=== PATIENT | female | born 1935 | race Asian ===

== ENCOUNTER 2017-01-26 17:55 | Emergency (ER) | payer OTHER ==
[~2017-01-26] VITALS: Ht 152.4 cm; Wt 49.9 kg
[2017-01-26 17:55] VITALS: BP_SYST 145
[2017-01-26] MEDS: MORPHINE 4 MG/ML INJ. SYRINGE IM ONE (20:20)
[2017-01-26 20:46] VITALS: BP_SYST 145
== END 2017-01-26 20:46 | disposition home or self-care (01) ==
LOC: SED 17:55
DX: S73.101A Unspecified sprain of right hip, initial encounter (principal); E11.9 Type 2 diabetes mellitus without complications; X58.XXXA Exposure to other specified factors, initial encounter; Y93.89 Activity, other specified; Y92.89 Other specified places as the place of occurrence of the external cause; Y99.8 Other external cause status
CPT/HCPCS: 72170; 73502; 96372; 99284; J2270

== ENCOUNTER 2017-04-17 08:32 | Outpatient (CLI) | payer OTHER | END 2017-04-17 17:20 | disposition home or self-care (01) | LOC: SMA 08:32 | PROVIDERS: ATTEND Family Medicine | DX: Z12.31 Encounter for screening mammogram for malignant neoplasm of breast (principal) | CPT/HCPCS: G0202 ==

== ENCOUNTER 2018-05-17 08:30 | Outpatient (CLI) | payer OTHER | END 2018-05-17 21:08 | disposition home or self-care (01) | LOC: SMA 08:30 | PROVIDERS: ATTEND Family Medicine | DX: Z12.31 Encounter for screening mammogram for malignant neoplasm of breast (principal) | CPT/HCPCS: 77067 ==

== ENCOUNTER 2019-12-31 20:32 | Emergency (ER) | payer OTHER ==
[~2019-12-31] VITALS: Ht 152.4 cm; Wt 52.2 kg
[2019-12-31 20:56] VITALS: BP_SYST 118
--- NOTE | 2019-12-31 21:06 | NUR ---
Placed in room 02 . Placed on security monitor, blood pressure machine and pulse oximeter. To gown for exam. Side rails up. Report given to KRISHAN St.
--- NOTE | 2019-12-31 21:10 | NUR ---
Patient AOx4, GCS 15, presents to ED via wheelchair for c/o mechanical fall at 1100 today. Patient reports slipping on water and falling back hitting occiput of head. Superficial abrasion noted to occiput. Granddaughter reported that there was initially a hematoma to site which gradually subsided after applying ice. No report of pain. Patient is not on blood thinners. Patient states, "I feel fine now, my family just brought me to get evaluated by a physician. HR 123 upon triage, patient reports no chest pain, no palpitations. Patient uses a cane as assistive device.
--- NOTE | 2019-12-31 21:20 | NUR ---
ED MD Crews at bedside for medical evaluation.
--- NOTE | 2019-12-31 21:28 | NUR ---
Patient taken by radiology for XR via gurney. NAD noted at this time.
--- NOTE | 2019-12-31 21:40 | NUR ---
# 18 gauge angiocath placed to RAC. Use of asceptic technique. Opsite placed over site. Blood return noted. Blood for lab drawn from site. Flushed with 10 cc of normal saline. No evidence of infiltration noted. Patient tolerated well.
--- NOTE | 2019-12-31 21:46 | NUR ---
Rectal temp 99.0
[2019-12-31] MEDS ORDERED: MAGNESIUM SULFATE/D5W 100 ML IV ONE (22:00)
[2019-12-31 22:05] LABS: BASOPHILS # (AUTO) 0.1 K/uL (0.0-0.2); BASOPHILS % (AUTO) 1.1 % (0.0-2.0); EOSINOPHILS # (AUTO) 0.1 K/uL (0.0-0.4); EOSINOPHILS % (AUTO) 0.9 % (0.0-4.0); HEMATOCRIT 38.8 % (36-48); HEMOGLOBIN 12.7 g/dL (12.0-16.0); LYMPHOCYTES % (AUTO) 13.3 % (20.5-51.5); MEAN CORPUSCULAR HEMOGLOBIN 32 pg (27-31); MEAN CORPUSCULAR HGB CONC 33 % (32-36); MEAN CORPUSCULAR VOLUME 98 fL (79.0-98.0); MONOCYTES # (AUTO) 0.4 K/uL (0.0-1.0); MONOCYTES % (AUTO) 5.6 % (1.7-9.3); NEUTROPHILS # (AUTO) 5.8 K/uL (1.8-7.7); NEUTROPHILS % (AUTO) 79.1 % (40.0-70.0); PLATELET COUNT (AUTO) 254 K/uL (130-430); RED BLOOD CELL COUNT(AUTO) 3.96 MIL/uL (4.2-6.2); RED CELL DISTRIBUTION WIDTH 14.7 % (9.0-15.0); WHITE BLOOD COUNT (AUTO) 7.3 K/uL (4.8-10.8)
[2019-12-31 22:18] LABS: ANION GAP 10 (5-15); CHLORIDE 103 mmol/L (98-107); CREATININE 1.09 mg/dL (0.55-1.30); GLUCOSE 133 mg/dL (70-99); POTASSIUM 4.3 mmol/L (3.5-5.1); SODIUM SERUM 140 mmol/L (136-145); UREA NITROGEN, BLOOD 19 mg/dL (8-21)
[2019-12-31 22:24] LABS: ALANINE AMINOTRANSFERASE 20 U/L (12-78); ASPARTATE AMINOTRANSFERASE 15 U/L (10-37); TOTAL BILIRUBIN 0.4 mg/dL (0.0-1.0)
[2019-12-31] MEDS ORDERED: MAGNESIUM SULFATE 1 GM in NS 100 ML IV ONE (23:15)
[2019-12-31 23:44] LABS: BILIRUBIN,URINE NEGATIVE (NEGATIVE); BLOOD, URINE NEGATIVE (NEGATIVE); CLARITY/URINE SL CLOUDY (CLEAR); COLOR,URINE YELLOW (YELLOW); GLUCOSE,URINE NEGATIVE (NEGATIVE); KETONES,URINE NEGATIVE (NEGATIVE); LEUKOCYTE ESTERASE ,URINE TRACE (NEGATIVE); NITRITE, URINE NEGATIVE (NEGATIVE); PROTEIN URINE NEGATIVE (NEGATIVE); UROBILINOGEN,URINE 0.2 (0.2-1.0)
[2019-12-31 23:49] LABS: BACTERIA,URINE RARE /HPF (None Seen); RBC,URINE 0-3 /HPF (0-3)
[2020-01-01] MEDS ORDERED: MAGNESIUM SULFATE 1 GM/2 ML VIAL ONE (01:02)
--- NOTE | 2020-01-01 01:54 | NUR ---
Pt requesting to use the bathroom, assisted pt to ambulate.
[2020-01-01 02:06] VITALS: BP_SYST 120
--- NOTE | 2020-01-01 02:06 | NUR ---
Patient given written and verbal discharge instructions and verbalizes understanding. ER MD discussed with patient the results and treatment provided. Patient in stable condition. ID arm band removed. IV catheter removed intact and dressing applied, no active bleeding. Opportunity for questions provided and answered. Medication side effect fact sheet provided.
== END 2020-01-01 02:06 | disposition home or self-care (01) ==
LOC: SED 20:32
DX: S09.8XXA Other specified injuries of head, initial encounter (principal); E11.9 Type 2 diabetes mellitus without complications; W01.198A Fall on same level from slipping, tripping and stumbling with subsequent striking against other object, initial encounter; Y93.89 Activity, other specified; Y92.89 Other specified places as the place of occurrence of the external cause; Y99.8 Other external cause status
CPT/HCPCS: 36415; 70450; 71045; 72125; 80053; 81000; 83605; 83880; 84484; 85025; 87040; 87086; 87186; 93005; 96365; 99285; J3475; 96368

== ENCOUNTER 2021-05-31 11:35 | Emergency (ER) | payer OTHER ==
[~2021-05-31] VITALS: Ht 152.4 cm; Wt 46.3 kg
--- NOTE | 2021-05-31 11:55 | NUR ---
Patient to ER bed 4 to gown for evaluation. Side rails up. Report given to Michelle NICKERSON.
[2021-05-31 11:59] VITALS: BP_SYST 131
--- NOTE | 2021-05-31 12:09 | NUR ---
PT WAS BROUGHT TO ER VIA PERSONAL VEHICLE WITH HER [id number]. PT STATED SHE FELL THIS MORNING WHILE SHE WAS USING HER WALKER. PT DENIES SYNCOPY PRIOR TO THE FALL AND DENIES LOC FOLLOWING THE FALL. PT HAS AN APPROX 1.5-2 INCH HEMATOMA ON THE LEFT SIDE OF HER FOREHEAD-PURPLE IN COLOR, NO ACTIVE BLEEDING NOTED. PT STATES THE PAIN WAS A "3 OR 4" IMMEDIATELY FOLLOWING THE FALL BUT STATES "THE PAIN IS ALMOST GONE" CURRENTLY. THE PATIENT DENIES ANY NUMBNESS, WEAKNESS, OR PARASTHESIS IN THE EXTREMITIES. THERE IS NO RADIATION OF PAIN OR OTHER INJURIES FROM THE FALL FOUND. PT PUPILS ARE DANILO AND 3 MM. PT IS ABLE TO COHERENTLY ANSWER QUESTIONS AND FOLLOW COMMANDS. NEURO: PT IS AOX4, NO NUMBNESS OR WEAKNESS. PUPILS ARE DANILO AT 3MM. VITALS FOLLOWED: 131/65 (L. ARM), 87 HR (NSR), 15 RR, 98% O2 (ROOM AIR), AND 1/10 PAIN. PATIENT IS IN SEMI-FOWLERS POSITION WITH LIGHTS ON WITH RAILS UP. PATIENT STATES FAMILY IS IN THE WAITING ROOM.
--- NOTE | 2021-05-31 12:25 | NUR ---
DR OCHOA IN ROOM FOR EXAM
--- NOTE | 2021-05-31 12:31 | NUR ---
PT TAKEN TO CT SCAN
--- NOTE | 2021-05-31 13:27 | NUR ---
pt is to be discharged, family was called and they are thier way to [facility] in 15min.
--- NOTE | 2021-05-31 13:54 | NUR ---
Patient given written and verbal discharge instructions and verbalizes understanding. ER MD discussed with patient the results and treatment provided. Patient in stable condition. ID arm band removed. Patient educated on pain management and to follow up with PMD. Pain Scale . Opportunity for questions provided and answered. Medication side effect fact sheet provided.
[2021-05-31 14:20] VITALS: BP_SYST 136
== END 2021-05-31 14:20 | disposition home or self-care (01) ==
LOC: SED 11:35
DX: S09.90XA Unspecified injury of head, initial encounter (principal); E11.9 Type 2 diabetes mellitus without complications; W01.0XXA Fall on same level from slipping, tripping and stumbling without subsequent striking against object, initial encounter; Y93.89 Activity, other specified; Y92.89 Other specified places as the place of occurrence of the external cause; Y99.8 Other external cause status
CPT/HCPCS: 70450-TC; 76376; 99284

== ENCOUNTER 2023-11-11 11:10 | Inpatient (IN) | payer OTHER ==
[2023-11-11] VITALS (13 sets, daily range): BP systolic 82–134; PULSE 83–129; RESP 13–25; TEMP 98.4; O2SAT 95–99
[~2023-11-11] VITALS: Ht 149.9 cm; Wt 52.2 kg
[2023-11-11] MEDS: METOCLOPRAMIDE HCL 10 MG/2 ML VIAL IVP ONE (12:05)
[2023-11-11] MEDS: MECLIZINE HCL 25 MG TABLET (ANITVERT) PO ONE (12:05)
[2023-11-11 12:27] LABS: BASOPHILS % (AUTO) 0.3 % (0.0-2.0); EOSINOPHILS % (AUTO) 0.2 % (0.0-4.0); HEMATOCRIT 33.1 % (36-48); LYMPHOCYTES # (AUTO) 0.4 K/uL (1.0-5.5); LYMPHOCYTES % (AUTO) 4.2 % (20.5-51.5); MEAN CORPUSCULAR HEMOGLOBIN 33 pg (27-31); MEAN CORPUSCULAR HGB CONC 33 % (32-36); MEAN CORPUSCULAR VOLUME 98 fL (79.0-98.0); MONOCYTES # (AUTO) 0.6 K/uL (0.0-1.0); MONOCYTES % (AUTO) 7.1 % (1.7-9.3); NEUTROPHILS % (AUTO) 88.2 % (40.0-70.0); PLATELET COUNT (AUTO) 204 K/uL (130-430); RED BLOOD CELL COUNT(AUTO) 3.38 MIL/uL (4.2-6.2); RED CELL DISTRIBUTION WIDTH 14.5 % (9.0-15.0)
[2023-11-11 12:41] LABS: INR 1.1 (0.8-1.2); PROTHROMBIN TIME 11.6 SECS (9.5-12.5)
[2023-11-11 12:48] LABS: ALANINE AMINOTRANSFERASE 20 U/L (12-78); ALBUMIN 3.2 g/dL (3.4-4.8); ANION GAP 14 (5-15); ASPARTATE AMINOTRANSFERASE 32 U/L (10-37); BILIRUBIN,DIRECT 0.1 mg/dL (0.0-0.3); CALCIUM 8.6 mg/dL (8.4-11.0); CARBON DIOXIDE 20 mmol/L (23-29); CHLORIDE 99 mmol/L (98-107); CREATINE KINASE, TOTAL 1691 U/L (26-192); CREATININE 2.68 mg/dL (0.55-1.30); GLUCOSE 100 mg/dL (74-106); POTASSIUM 5.5 mmol/L (3.5-5.1); SODIUM SERUM 133 mmol/L (136-145); TOTAL BILIRUBIN 0.4 mg/dL (0.0-1.0); TOTAL PROTEIN, SERUM 6.5 g/dL (6.4-8.3); UREA NITROGEN, BLOOD 59 mg/dL (8-21)
[2023-11-11] MEDS: NACL 0.9% 1,000 ML IV ONE ×2 (13:41→16:14)
[2023-11-11] MEDS ORDERED: CARV12.548 PO (15:27)
[2023-11-11] MEDS ORDERED: LIP20 PO (15:27)
[2023-11-11] MEDS ORDERED: AMLO5TAB92 PO (15:27)
[2023-11-11] MEDS ORDERED: LISI20TA PO (15:27)
[2023-11-11] MEDS ORDERED: ALEN1TAB5 PO (15:27)
[2023-11-11] MEDS ORDERED: METF-379 PO (15:27)
[2023-11-11] MEDS ORDERED: PIOG15TA8 PO (15:27)
[2023-11-11 15:33] LABS: CKMB RELATIVE INDEX 0.4 (0.0-2.9)
[2023-11-11] MEDS ORDERED: ACETAMINOPHEN 325 MG TABLET PO PRN (16:15)
[2023-11-11] MEDS ORDERED: ONDANSETRON HCL 4 MG/2 ML VIAL IVP PRN (16:15)
[2023-11-11] MEDS ORDERED: NALOXONE HCL 0.4 MG/ML AMP (NARCAN) IVP PRN ×2 (16:15)
[2023-11-11] MEDS: NACL 0.9% 1,000 ML IV SCH (18:00)
[2023-11-11] MEDS: NOREPINEPHRINE BITARTRATE 4 MG in D5W 246 ML IV PRN (18:08)
[2023-11-11] MEDS: ATORVASTATIN 20 MG TABLET PO ONE (18:45)
[2023-11-11 20:25] LABS: BILIRUBIN,URINE NEGATIVE (NEGATIVE); BLOOD, URINE 2+ (NEGATIVE); CLARITY/URINE SL CLOUDY (CLEAR); COLOR,URINE YELLOW (YELLOW); GLUCOSE,URINE NEGATIVE (NEGATIVE); KETONES,URINE NEGATIVE (NEGATIVE); NITRITE, URINE NEGATIVE (NEGATIVE); PROTEIN URINE NEGATIVE (NEGATIVE); UROBILINOGEN,URINE 0.2 (0.2-1.0)
[2023-11-11 20:34] LABS: BACTERIA,URINE MODERATE /HPF (None Seen); LEUKOCYTE ESTERASE ,URINE NEGATIVE (NEGATIVE); WBC,URINE 0-3 /HPF (0-3)
[2023-11-11 20:35] LABS: CALCIUM OXALATE CRYSTALS,UR 30-50 /HPF (None Seen); MUCUS,URINE None Seen /LPF (None Seen)
[2023-11-12] VITALS (72 sets, daily range): BP systolic 71–187; PULSE 76–115; RESP 15–26; TEMP 97.8–98.5; O2SAT 93–100
[2023-11-12] MEDS: NOREPINEPHRINE 4 MG/4 ML VIAL IV ONE (01:12)
[2023-11-12 04:32] LABS: BASOPHILS % (AUTO) 0.6 % (0.0-2.0); EOSINOPHILS # (AUTO) 0.1 K/uL (0.0-0.4); EOSINOPHILS % (AUTO) 1.5 % (0.0-4.0); HEMATOCRIT 28.6 % (36-48); HEMOGLOBIN 9.6 g/dL (12.0-16.0); LYMPHOCYTES % (AUTO) 14.5 % (20.5-51.5); MEAN CORPUSCULAR HEMOGLOBIN 33 pg (27-31); MEAN CORPUSCULAR HGB CONC 34 % (32-36); MEAN CORPUSCULAR VOLUME 97 fL (79.0-98.0); MONOCYTES # (AUTO) 0.9 K/uL (0.0-1.0); MONOCYTES % (AUTO) 12.5 % (1.7-9.3); NEUTROPHILS # (AUTO) 4.9 K/uL (1.8-7.7); NEUTROPHILS % (AUTO) 70.9 % (40.0-70.0); PLATELET COUNT (AUTO) 196 K/uL (130-430); RED BLOOD CELL COUNT(AUTO) 2.94 MIL/uL (4.2-6.2); RED CELL DISTRIBUTION WIDTH 14.5 % (9.0-15.0); WHITE BLOOD COUNT (AUTO) 6.9 K/uL (4.8-10.8)
[2023-11-12 05:08] LABS: ALANINE AMINOTRANSFERASE 14 U/L (12-78); ALBUMIN 2.9 g/dL (3.4-4.8); ANION GAP 14 (5-15); ASPARTATE AMINOTRANSFERASE 35 U/L (10-37); CALCIUM 7.9 mg/dL (8.4-11.0); CARBON DIOXIDE 18 mmol/L (23-29); CHLORIDE 109 mmol/L (98-107); CREATINE KINASE, TOTAL 1223 U/L (26-192); CREATININE 2.05 mg/dL (0.55-1.30); GLUCOSE 105 mg/dL (74-106); PHOSPHORUS 3.8 mg/dL (2.7-4.5); POTASSIUM 4.7 mmol/L (3.5-5.1); SODIUM SERUM 141 mmol/L (136-145); TOTAL BILIRUBIN 0.3 mg/dL (0.0-1.0); TOTAL PROTEIN, SERUM 5.8 g/dL (6.4-8.3); UREA NITROGEN, BLOOD 50 mg/dL (8-21)
[2023-11-12 05:33] LABS: CKMB RELATIVE INDEX 0.4 (0.0-2.9)
[2023-11-12] MEDS: amLODIPine BESYLATE 5 MG TABLET PO SCH (09:00)
[2023-11-12] MEDS: CARVEDILOL 12.5 MG TABLET (COREG) PO SCH (09:00)
[2023-11-12] MEDS: PIOGLITAZONE HCL 15 MG TABLET PO SCH (09:00)
[2023-11-12] MEDS: ATORVASTATIN 20 MG TABLET PO SCH (10:18)
[2023-11-12] MEDS: MAGNESIUM SULFATE 50 ML IV ONE (10:19)
[2023-11-12] MEDS: CALCIUM GLUC 2 GM/100ML-NACL 100 ML IV ONE (13:08)
[2023-11-12] MEDS: cefTRIAXone 1 GM in D5W 50 ML IV SCH (13:10)
[2023-11-12] MEDS: PHENTOLAMINE MESYLATE 5 MG VIAL INJ ONE (18:15)
[2023-11-12] MEDS: LORazepam 2 MG/ML VIAL IVP PRN (20:50)
[2023-11-12] MEDS: INSULIN REGULAR, HUMAN 100 UNITS/ML, 3 ML VIAL (humuLIN R) SUBCUT PRN (20:54)
[2023-11-12] MEDS: IPRATROPIUM/ALBUTEROL SULFATE 3 ML AMPUL.NEB (DUONEB) ONE (21:02)
[2023-11-13] VITALS (26 sets, daily range): BP systolic 97–146; PULSE 70–117; RESP 13–28; TEMP 98.2–98.8; O2SAT 94–98
[2023-11-13 06:21] LABS: BASOPHILS % (AUTO) 0.7 % (0.0-2.0); EOSINOPHILS # (AUTO) 0.1 K/uL (0.0-0.4); EOSINOPHILS % (AUTO) 2.2 % (0.0-4.0); HEMATOCRIT 32.3 % (36-48); HEMOGLOBIN 10.8 g/dL (12.0-16.0); LYMPHOCYTES # (AUTO) 0.9 K/uL (1.0-5.5); LYMPHOCYTES % (AUTO) 14.1 % (20.5-51.5); MEAN CORPUSCULAR HEMOGLOBIN 33 pg (27-31); MEAN CORPUSCULAR HGB CONC 33 % (32-36); MEAN CORPUSCULAR VOLUME 98 fL (79.0-98.0); MONOCYTES # (AUTO) 0.6 K/uL (0.0-1.0); MONOCYTES % (AUTO) 9.9 % (1.7-9.3); NEUTROPHILS # (AUTO) 4.7 K/uL (1.8-7.7); NEUTROPHILS % (AUTO) 73.1 % (40.0-70.0); PLATELET COUNT (AUTO) 158 K/uL (130-430); RED BLOOD CELL COUNT(AUTO) 3.31 MIL/uL (4.2-6.2); RED CELL DISTRIBUTION WIDTH 14.6 % (9.0-15.0); WHITE BLOOD COUNT (AUTO) 6.5 K/uL (4.8-10.8)
[2023-11-13 06:25] LABS: ERYTHROCYTE SEDIMENTATION RATE 16 MM/HR (0-20)
[2023-11-13 06:32] LABS: ANION GAP 12 (5-15); CALCIUM 8.4 mg/dL (8.4-11.0); CARBON DIOXIDE 20 mmol/L (23-29); CHLORIDE 115 mmol/L (98-107); CREATINE KINASE, TOTAL 572 U/L (26-192); CREATININE 1.05 mg/dL (0.55-1.30); GLUCOSE 65 mg/dL (74-106); PHOSPHORUS 2.7 mg/dL (2.7-4.5); POTASSIUM 4.2 mmol/L (3.5-5.1); SODIUM SERUM 147 mmol/L (136-145); UREA NITROGEN, BLOOD 18 mg/dL (8-21)
[2023-11-13] MEDS: DEXTROSE 50% JECT 50 ML DISP.SYRIN ONE (07:05)
[2023-11-13] MEDS: IPRATROPIUM/ALBUTEROL SULFATE 3 ML AMPUL.NEB (DUONEB) INH PRN (07:14)
[2023-11-13] MEDS ORDERED: D5W 1,000 ML IV PRN (07:15)
[2023-11-13] MEDS ORDERED: GLUCOSE (DEXTROSE) ORAL GEL -Adults PO PRN (07:15)
[2023-11-13] MEDS ORDERED: DEXTROSE 50%-WATER 50 ML DISP.SYRIN IVP PRN (07:15)
[2023-11-13 07:59] LABS: CKMB RELATIVE INDEX 0.5 (0.0-2.9)
[2023-11-13] MEDS: HYDROcodone/ACETAMIN 10-325 MG TAB PO PRN (11:55)
[2023-11-13] MEDS: ACETAMINOPHEN 325 MG TABLET PO PRN (14:30)
[2023-11-13] MEDS: metroNIDAZOLE 500 mg/NS 100 ML IV SCH (20:22)
[2023-11-14] VITALS (14 sets, daily range): BP systolic 111–155; PULSE 81–102; RESP 13–22; TEMP 98.3–99.1; O2SAT 95–99
[2023-11-14 05:33] LABS: ERYTHROCYTE SEDIMENTATION RATE 26 MM/HR (0-20)
[2023-11-14 05:38] LABS: BASOPHILS % (AUTO) 0.6 % (0.0-2.0); EOSINOPHILS # (AUTO) 0.1 K/uL (0.0-0.4); EOSINOPHILS % (AUTO) 2.1 % (0.0-4.0); HEMATOCRIT 29.8 % (36-48); LYMPHOCYTES # (AUTO) 1.1 K/uL (1.0-5.5); MEAN CORPUSCULAR HEMOGLOBIN 33 pg (27-31); MEAN CORPUSCULAR HGB CONC 34 % (32-36); MEAN CORPUSCULAR VOLUME 98 fL (79.0-98.0); MONOCYTES # (AUTO) 0.7 K/uL (0.0-1.0); MONOCYTES % (AUTO) 10.2 % (1.7-9.3); NEUTROPHILS % (AUTO) 72.1 % (40.0-70.0); PLATELET COUNT (AUTO) 158 K/uL (130-430); RED BLOOD CELL COUNT(AUTO) 3.05 MIL/uL (4.2-6.2); RED CELL DISTRIBUTION WIDTH 14.6 % (9.0-15.0)
[2023-11-14 06:10] LABS: ALANINE AMINOTRANSFERASE 18 U/L (12-78); ALBUMIN 2.3 g/dL (3.4-4.8); ANION GAP 9 (5-15); ASPARTATE AMINOTRANSFERASE 28 U/L (10-37); CALCIUM 8.1 mg/dL (8.4-11.0); CARBON DIOXIDE 19 mmol/L (23-29); CHLORIDE 112 mmol/L (98-107); CREATININE 1.03 mg/dL (0.55-1.30); GLUCOSE 96 mg/dL (74-106); POTASSIUM 4.7 mmol/L (3.5-5.1); SODIUM SERUM 140 mmol/L (136-145); TOTAL BILIRUBIN 0.4 mg/dL (0.0-1.0); TOTAL PROTEIN, SERUM 5.7 g/dL (6.4-8.3); UREA NITROGEN, BLOOD 14 mg/dL (8-21)
[2023-11-15] VITALS (11 sets, daily range): BP systolic 145–153; PULSE 80–118; RESP 16–20; TEMP 97.1–99.5; O2SAT 96–99
[2023-11-15 04:55] LABS: ERYTHROCYTE SEDIMENTATION RATE 56 MM/HR (0-20)
[2023-11-15 05:28] LABS: ANION GAP 13 (5-15); CALCIUM 8.4 mg/dL (8.4-11.0); CARBON DIOXIDE 17 mmol/L (23-29); CHLORIDE 113 mmol/L (98-107); CREATINE KINASE, TOTAL 106 U/L (26-192); CREATININE 1.04 mg/dL (0.55-1.30); GLUCOSE 80 mg/dL (74-106); POTASSIUM 4.2 mmol/L (3.5-5.1); SODIUM SERUM 143 mmol/L (136-145); UREA NITROGEN, BLOOD 11 mg/dL (8-21)
[2023-11-15 06:08] LABS: BASOPHILS % (AUTO) 0.4 % (0.0-2.0); EOSINOPHILS # (AUTO) 0.1 K/uL (0.0-0.4); EOSINOPHILS % (AUTO) 1.2 % (0.0-4.0); HEMOGLOBIN 10.3 g/dL (12.0-16.0); LYMPHOCYTES # (AUTO) 0.7 K/uL (1.0-5.5); LYMPHOCYTES % (AUTO) 10.3 % (20.5-51.5); MEAN CORPUSCULAR HEMOGLOBIN 32 pg (27-31); MEAN CORPUSCULAR HGB CONC 33 % (32-36); MEAN CORPUSCULAR VOLUME 98 fL (79.0-98.0); MONOCYTES # (AUTO) 0.5 K/uL (0.0-1.0); MONOCYTES % (AUTO) 7.5 % (1.7-9.3); NEUTROPHILS # (AUTO) 5.4 K/uL (1.8-7.7); NEUTROPHILS % (AUTO) 80.6 % (40.0-70.0); PLATELET COUNT (AUTO) 158 K/uL (130-430); RED BLOOD CELL COUNT(AUTO) 3.17 MIL/uL (4.2-6.2); RED CELL DISTRIBUTION WIDTH 15.1 % (9.0-15.0); WHITE BLOOD COUNT (AUTO) 6.8 K/uL (4.8-10.8)
[2023-11-15] MEDS ORDERED: metroNIDAZOLE 500 mg/NS 100 ML IV ONE (23:52)
[2023-11-16] VITALS (7 sets, daily range): BP systolic 122–147; PULSE 118–131; RESP 16–20; TEMP 97.5–100.6; O2SAT 98–100
[2023-11-16] MEDS: HYDROcodone/ACETAMIN 5-325 MG TAB (NORCO/ VICODIN) PO PRN (00:28)
[2023-11-16 06:05] LABS: BASOPHILS % (AUTO) 0.3 % (0.0-2.0); EOSINOPHILS # (AUTO) 0.1 K/uL (0.0-0.4); EOSINOPHILS % (AUTO) 2.1 % (0.0-4.0); HEMATOCRIT 31.7 % (36-48); HEMOGLOBIN 10.6 g/dL (12.0-16.0); LYMPHOCYTES # (AUTO) 0.8 K/uL (1.0-5.5); MEAN CORPUSCULAR HEMOGLOBIN 33 pg (27-31); MEAN CORPUSCULAR HGB CONC 34 % (32-36); MEAN CORPUSCULAR VOLUME 97 fL (79.0-98.0); MONOCYTES # (AUTO) 0.6 K/uL (0.0-1.0); NEUTROPHILS # (AUTO) 4.3 K/uL (1.8-7.7); NEUTROPHILS % (AUTO) 73.6 % (40.0-70.0); PLATELET COUNT (AUTO) 187 K/uL (130-430); RED BLOOD CELL COUNT(AUTO) 3.25 MIL/uL (4.2-6.2); RED CELL DISTRIBUTION WIDTH 15.1 % (9.0-15.0); WHITE BLOOD COUNT (AUTO) 5.8 K/uL (4.8-10.8)
[2023-11-16 06:09] LABS: ERYTHROCYTE SEDIMENTATION RATE 67 MM/HR (0-20)
[2023-11-16 06:41] LABS: ALANINE AMINOTRANSFERASE 14 U/L (12-78); ALBUMIN 2.2 g/dL (3.4-4.8); ANION GAP 10 (5-15); ASPARTATE AMINOTRANSFERASE 18 U/L (10-37); CALCIUM 8.5 mg/dL (8.4-11.0); CARBON DIOXIDE 22 mmol/L (23-29); CHLORIDE 111 mmol/L (98-107); CREATININE 1.25 mg/dL (0.55-1.30); GLUCOSE 128 mg/dL (74-106); PHOSPHORUS 3.4 mg/dL (2.7-4.5); POTASSIUM 3.9 mmol/L (3.5-5.1); SODIUM SERUM 143 mmol/L (136-145); TOTAL BILIRUBIN 0.3 mg/dL (0.0-1.0); TOTAL PROTEIN, SERUM 5.9 g/dL (6.4-8.3); UREA NITROGEN, BLOOD 15 mg/dL (8-21)
[2023-11-16] MEDS ORDERED: ROCPM1 IV (10:09)
[2023-11-16] MEDS ORDERED: FLAPM500 IV (10:09)
== END 2023-11-16 14:30 | DRG 871 ==
LOC: SED 11:10 → STU 13:25 → SIC 21:31 → STU 11-15 10:50
PROVIDERS: ADMIT Preventive Medicine Preventive Medicine/Occupational Environmental Medicine; ATTEND Preventive Medicine Preventive Medicine/Occupational Environmental Medicine
PROC: 05H833Z Insertion of Infusion Device into Left Axillary Vein, Percutaneous Approach (ICD-10-PCS; principal; 2023-11-12)
DX: A41.9 Sepsis, unspecified organism (principal); E43 Unspecified severe protein-calorie malnutrition; J18.9 Pneumonia, unspecified organism; R65.21 Severe sepsis with septic shock; J96.00 Acute respiratory failure, unspecified whether with hypoxia or hypercapnia; G93.41 Metabolic encephalopathy; N17.9 Acute kidney failure, unspecified; E87.1 Hypo-osmolality and hyponatremia; M62.82 Rhabdomyolysis; N39.0 Urinary tract infection, site not specified; G93.40 Encephalopathy, unspecified; E11.65 Type 2 diabetes mellitus with hyperglycemia; D64.9 Anemia, unspecified; E83.51 Hypocalcemia; E86.0 Dehydration; E78.5 Hyperlipidemia, unspecified; E87.5 Hyperkalemia; E88.09 Other disorders of plasma-protein metabolism, not elsewhere classified; F03.90 Unspecified dementia, unspecified severity, without behavioral disturbance, psychotic disturbance, mood disturbance, and anxiety; I10 Essential (primary) hypertension; G43.909 Migraine, unspecified, not intractable, without status migrainosus; G89.29 Other chronic pain; Z79.899 Other long term (current) drug therapy; Z68.23 Body mass index [BMI] 23.0-23.9, adult
CPT/HCPCS: 36415; 70450-TC; 71045; 76770; 80048; 80053; 80076; 81000; 81001; 81015; 82550; 82553; 82570; 82948; 83735; 84100; 84302; 84484; 85025; 85610; 85651; 85730; 87040; 87081; 87086; 92610-GN; 93005; 93306; 93880; 94070; 94640; 97110-GP; 97112-GP; 97116-GP; 97163-GP; 97530-GP; 99285; G0378; J0696; J1815; J2060; J2760; J2765; J3475; J3490; J7060; J8597

== ENCOUNTER 2023-12-07 16:40 | Inpatient (IN) | payer OTHER ==
[~2023-12-07] VITALS: Ht 152.4 cm; Wt 48.1 kg
[~2023-12-07 16:40] MED LIST: ALEN1TAB5 PO; AMLO5TAB92 PO; CARV12.548 PO; FLAPM500 IV; LIP20 PO; LISI20TA PO; METF-379 PO; PIOG15TA8 PO; ROCPM1 IV
[2023-12-07 16:55] VITALS: BP_SYST 111; PULSE 88; RESP 18; TEMP 98.1; O2SAT 100
[2023-12-07 17:33] LABS: BASOPHILS # (AUTO) 0.1 K/uL (0.0-0.2); BASOPHILS % (AUTO) 1.3 % (0.0-2.0); EOSINOPHILS # (AUTO) 0.1 K/uL (0.0-0.4); EOSINOPHILS % (AUTO) 2.1 % (0.0-4.0); HEMOGLOBIN 10.4 g/dL (12.0-16.0); LYMPHOCYTES # (AUTO) 1.4 K/uL (1.0-5.5); LYMPHOCYTES % (AUTO) 23.9 % (20.5-51.5); MEAN CORPUSCULAR HEMOGLOBIN 34 pg (27-31); MEAN CORPUSCULAR HGB CONC 34 % (32-36); MEAN CORPUSCULAR VOLUME 100 fL (79.0-98.0); MONOCYTES # (AUTO) 0.5 K/uL (0.0-1.0); MONOCYTES % (AUTO) 9.4 % (1.7-9.3); NEUTROPHILS # (AUTO) 3.6 K/uL (1.8-7.7); NEUTROPHILS % (AUTO) 63.3 % (40.0-70.0); PLATELET COUNT (AUTO) 233 K/uL (130-430); RED CELL DISTRIBUTION WIDTH 16.8 % (9.0-15.0); WHITE BLOOD COUNT (AUTO) 5.7 K/uL (4.8-10.8)
[2023-12-07] MEDS: NACL 0.9% 500 ML IV ONE (17:43)
[2023-12-07 17:44] LABS: BILIRUBIN,URINE NEGATIVE (NEGATIVE); BLOOD, URINE NEGATIVE (NEGATIVE); CLARITY/URINE CLEAR (CLEAR); COLOR,URINE YELLOW (YELLOW); GLUCOSE,URINE NEGATIVE (NEGATIVE); KETONES,URINE TRACE (NEGATIVE); LEUKOCYTE ESTERASE ,URINE TRACE (NEGATIVE); NITRITE, URINE NEGATIVE (NEGATIVE); PH,URINE 5.5 (5.0-8.0); PROTEIN URINE NEGATIVE (NEGATIVE); UROBILINOGEN,URINE 0.2 (0.2-1.0)
[2023-12-07 17:52] LABS: BACTERIA,URINE RARE /HPF (None Seen); RBC,URINE NONE SEEN /HPF (0-3); YEAST,URINE Rare /HPF (None Seen)
[2023-12-07 17:53] LABS: CALCIUM OXALATE CRYSTALS,UR 0-10 /HPF (None Seen); MUCUS,URINE None Seen /LPF (None Seen)
[2023-12-07 17:53] LABS: ALANINE AMINOTRANSFERASE 12 U/L (12-78); ALBUMIN 3.3 g/dL (3.4-4.8); ANION GAP 9 (5-15); ASPARTATE AMINOTRANSFERASE 14 U/L (10-37); BILIRUBIN,DIRECT 0.1 mg/dL (0.0-0.3); CALCIUM 9.4 mg/dL (8.4-11.0); CARBON DIOXIDE 24 mmol/L (23-29); CHLORIDE 105 mmol/L (98-107); CREATINE KINASE, TOTAL 20 U/L (26-192); CREATININE 2.44 mg/dL (0.55-1.30); GLUCOSE 156 mg/dL (74-106); LIPASE 102 U/L (16-77); SODIUM SERUM 138 mmol/L (136-145); TOTAL BILIRUBIN 0.3 mg/dL (0.0-1.0); TOTAL PROTEIN, SERUM 7.4 g/dL (6.4-8.3); UREA NITROGEN, BLOOD 44 mg/dL (8-21)
[2023-12-07 17:56] LABS: POTASSIUM 6.2 mmol/L (3.5-5.1)
[2023-12-07] MEDS: ALBUTEROL SULFATE 0.083% 2.5 MG/3 ML VIAL.NEB INH ONE (18:14)
[2023-12-07] MEDS ORDERED: SODIUM BICARBONATE 8.4% VIAL 50 MEQ/50 ML VIAL ONE (18:29)
[2023-12-07] MEDS: SODIUM BICARBONATE 0.5 MEQ/ML VIAL INJ ONE (18:55)
[2023-12-07] MEDS: SODIUM ZIRCONIUM CYCLOSILICATE 10 GM POWD.PACK PO ONE (19:00)
[2023-12-07] MEDS ORDERED: ALBUTEROL SULFATE 0.083% 2.5 MG/3 ML VIAL.NEB INH PRN (19:30)
[2023-12-07] MEDS ORDERED: ACETAMINOPHEN 325 MG TABLET PO PRN (19:30)
[2023-12-07] MEDS ORDERED: HYDROcodone/ACETAMIN 5-325 MG TAB (NORCO/ VICODIN) PO PRN (19:30)
[2023-12-07] MEDS ORDERED: HYDROcodone/ACETAMIN 10-325 MG TAB PO PRN (19:30)
[2023-12-07] MEDS ORDERED: MORPHINE 2 MG/ML INJ. SYRINGE IVP PRN (19:30)
[2023-12-07] MEDS ORDERED: ONDANSETRON HCL 4 MG/2 ML VIAL IVP PRN (19:30)
[2023-12-07] MEDS: cefTRIAXone 1 GM VIAL IM ONE (19:39)
[2023-12-07] MEDS ORDERED: DEXTROSE 50% JECT 50 ML DISP.SYRIN IVP PRN (19:45)
[2023-12-07] MEDS ORDERED: GLUCOSE (DEXTROSE) ORAL GEL -Adults PO PRN (19:45)
[2023-12-07] MEDS ORDERED: hydrALAZINE HCL 20 MG/ML VIAL IVP PRN (19:45)
[2023-12-07 21:10] LABS: ANION GAP 7 (5-15); CALCIUM 8.7 mg/dL (8.4-11.0); CARBON DIOXIDE 26 mmol/L (23-29); CHLORIDE 107 mmol/L (98-107); CREATININE 1.89 mg/dL (0.55-1.30); GLUCOSE 94 mg/dL (74-106); POTASSIUM 4.9 mmol/L (3.5-5.1); SODIUM SERUM 140 mmol/L (136-145); UREA NITROGEN, BLOOD 41 mg/dL (8-21)
[2023-12-07 22:00] VITALS: BP_SYST 113; BP_SYST 117; PULSE 76; PULSE 82; RESP 20; TEMP 98.4; O2SAT 98
[2023-12-07 22:10] VITALS: O2SAT 98
[2023-12-08] MEDS: NACL 0.9% 1,000 ML IV ONE (00:40)
[2023-12-08 04:00] VITALS: BP_SYST 115; PULSE 80; RESP 18; TEMP 97.6; O2SAT 98
[2023-12-08 08:15] VITALS: O2SAT 98
[2023-12-08 08:21] VITALS: BP_SYST 127; PULSE 81; RESP 19; TEMP 97.5; O2SAT 98
[2023-12-08 08:51] LABS: ALANINE AMINOTRANSFERASE 11 U/L (12-78); ALBUMIN 2.7 g/dL (3.4-4.8); ANION GAP 8 (5-15); ASPARTATE AMINOTRANSFERASE 17 U/L (10-37); CALCIUM 8.6 mg/dL (8.4-11.0); CARBON DIOXIDE 25 mmol/L (23-29); CHLORIDE 109 mmol/L (98-107); CREATININE 1.45 mg/dL (0.55-1.30); GLUCOSE 123 mg/dL (74-106); POTASSIUM 4.3 mmol/L (3.5-5.1); SODIUM SERUM 142 mmol/L (136-145); TOTAL BILIRUBIN 0.2 mg/dL (0.0-1.0); TOTAL PROTEIN, SERUM 6.5 g/dL (6.4-8.3); UREA NITROGEN, BLOOD 28 mg/dL (8-21)
[2023-12-08 08:56] LABS: BASOPHILS # (AUTO) 0.1 K/uL (0.0-0.2); BASOPHILS % (AUTO) 1.3 % (0.0-2.0); EOSINOPHILS # (AUTO) 0.2 K/uL (0.0-0.4); EOSINOPHILS % (AUTO) 3.4 % (0.0-4.0); HEMATOCRIT 28.6 % (36-48); HEMOGLOBIN 9.5 g/dL (12.0-16.0); LYMPHOCYTES % (AUTO) 22.7 % (20.5-51.5); MEAN CORPUSCULAR HEMOGLOBIN 33 pg (27-31); MEAN CORPUSCULAR HGB CONC 33 % (32-36); MEAN CORPUSCULAR VOLUME 100 fL (79.0-98.0); MONOCYTES # (AUTO) 0.4 K/uL (0.0-1.0); MONOCYTES % (AUTO) 8.7 % (1.7-9.3); NEUTROPHILS # (AUTO) 2.9 K/uL (1.8-7.7); NEUTROPHILS % (AUTO) 63.9 % (40.0-70.0); PLATELET COUNT (AUTO) 209 K/uL (130-430); RED BLOOD CELL COUNT(AUTO) 2.87 MIL/uL (4.2-6.2); RED CELL DISTRIBUTION WIDTH 15.6 % (9.0-15.0); WHITE BLOOD COUNT (AUTO) 4.5 K/uL (4.8-10.8)
[2023-12-08] MEDS: CARVEDILOL 12.5 MG TABLET (COREG) PO SCH (08:56)
[2023-12-08] MEDS: ATORVASTATIN 20 MG TABLET PO SCH (08:56)
[2023-12-08] MEDS: NACL 0.9% 1,000 ML IV SCH (11:22)
[2023-12-08 12:00] VITALS: BP_SYST 116; PULSE 78; RESP 16; TEMP 97.8; O2SAT 96
[2023-12-08 16:00] VITALS: BP_SYST 125; PULSE 81; RESP 16; TEMP 97.8; O2SAT 98
[2023-12-08 20:02] VITALS: BP_SYST 149; PULSE 91; RESP 19; TEMP 97.8; O2SAT 97
[2023-12-08] MEDS: cefTRIAXone 1 GM IVPB PREMIX 50 ML IV SCH (20:38)
[2023-12-09 00:28] VITALS: BP_SYST 134; PULSE 81; RESP 19; TEMP 99.5
[2023-12-09 06:34] LABS: BASOPHILS # (AUTO) 0.1 K/uL (0.0-0.2); EOSINOPHILS # (AUTO) 0.2 K/uL (0.0-0.4); EOSINOPHILS % (AUTO) 3.8 % (0.0-4.0); HEMATOCRIT 33.9 % (36-48); LYMPHOCYTES # (AUTO) 1.4 K/uL (1.0-5.5); LYMPHOCYTES % (AUTO) 25.4 % (20.5-51.5); MEAN CORPUSCULAR HEMOGLOBIN 33 pg (27-31); MEAN CORPUSCULAR HGB CONC 33 % (32-36); MEAN CORPUSCULAR VOLUME 100 fL (79.0-98.0); MONOCYTES # (AUTO) 0.5 K/uL (0.0-1.0); MONOCYTES % (AUTO) 8.5 % (1.7-9.3); NEUTROPHILS # (AUTO) 3.4 K/uL (1.8-7.7); NEUTROPHILS % (AUTO) 61.3 % (40.0-70.0); PLATELET COUNT (AUTO) 250 K/uL (130-430); RED BLOOD CELL COUNT(AUTO) 3.38 MIL/uL (4.2-6.2); RED CELL DISTRIBUTION WIDTH 16.1 % (9.0-15.0); WHITE BLOOD COUNT (AUTO) 5.5 K/uL (4.8-10.8)
[2023-12-09 07:14] LABS: ALANINE AMINOTRANSFERASE 12 U/L (12-78); ALBUMIN 3.3 g/dL (3.4-4.8); ANION GAP 8 (5-15); ASPARTATE AMINOTRANSFERASE 20 U/L (10-37); CARBON DIOXIDE 26 mmol/L (23-29); CHLORIDE 109 mmol/L (98-107); CREATININE 1.09 mg/dL (0.55-1.30); GLUCOSE 83 mg/dL (74-106); POTASSIUM 4.6 mmol/L (3.5-5.1); SODIUM SERUM 143 mmol/L (136-145); TOTAL BILIRUBIN 0.3 mg/dL (0.0-1.0); TOTAL PROTEIN, SERUM 7.6 g/dL (6.4-8.3); UREA NITROGEN, BLOOD 13 mg/dL (8-21)
[2023-12-09 08:30] VITALS: O2SAT 100
[2023-12-09 08:37] VITALS: BP_SYST 121; PULSE 86; RESP 16; TEMP 97.9; O2SAT 100
[2023-12-09 12:30] VITALS: BP_SYST 116; PULSE 88; RESP 18; TEMP 97.5; O2SAT 99
[2023-12-09 16:07] VITALS: BP_SYST 140; PULSE 87; RESP 18; TEMP 98.8; O2SAT 100
[2023-12-09] MEDS: CYANOCOBALAMIN (VITAMIN B-12) 1,000 MCG TABLET PO SCH (17:30)
[2023-12-09 20:01] VITALS: BP_SYST 126; PULSE 92; RESP 19; TEMP 98.3; O2SAT 100
[2023-12-09] MEDS: MIRTAZAPINE 15 MG TABLET PO SCH (20:17)
[2023-12-09] MEDS: INSULIN REGULAR, HUMAN 100 UNITS/ML, 3 ML VIAL (humuLIN R) SUBCUT PRN (20:20)
[2023-12-10 01:04] VITALS: BP_SYST 135; BP_SYST 139; PULSE 88; PULSE 99; RESP 18; TEMP 98.3; TEMP 99.6; O2SAT 100; O2SAT 97
[2023-12-10 05:29] LABS: BASOPHILS # (AUTO) 0.1 K/uL (0.0-0.2); EOSINOPHILS # (AUTO) 0.2 K/uL (0.0-0.4); EOSINOPHILS % (AUTO) 3.3 % (0.0-4.0); HEMATOCRIT 33.7 % (36-48); HEMOGLOBIN 11.1 g/dL (12.0-16.0); LYMPHOCYTES # (AUTO) 1.6 K/uL (1.0-5.5); LYMPHOCYTES % (AUTO) 27.3 % (20.5-51.5); MEAN CORPUSCULAR HEMOGLOBIN 33 pg (27-31); MEAN CORPUSCULAR HGB CONC 33 % (32-36); MEAN CORPUSCULAR VOLUME 100 fL (79.0-98.0); MONOCYTES # (AUTO) 0.6 K/uL (0.0-1.0); MONOCYTES % (AUTO) 10.5 % (1.7-9.3); NEUTROPHILS # (AUTO) 3.5 K/uL (1.8-7.7); NEUTROPHILS % (AUTO) 57.9 % (40.0-70.0); PLATELET COUNT (AUTO) 209 K/uL (130-430); RED BLOOD CELL COUNT(AUTO) 3.37 MIL/uL (4.2-6.2); RED CELL DISTRIBUTION WIDTH 15.8 % (9.0-15.0)
[2023-12-10 06:01] LABS: ALANINE AMINOTRANSFERASE 13 U/L (12-78); ANION GAP 10 (5-15); ASPARTATE AMINOTRANSFERASE 19 U/L (10-37); CALCIUM 8.6 mg/dL (8.4-11.0); CARBON DIOXIDE 25 mmol/L (23-29); CHLORIDE 112 mmol/L (98-107); CREATININE 1.02 mg/dL (0.55-1.30); GLUCOSE 87 mg/dL (74-106); POTASSIUM 4.3 mmol/L (3.5-5.1); SODIUM SERUM 147 mmol/L (136-145); TOTAL BILIRUBIN 0.2 mg/dL (0.0-1.0); TOTAL PROTEIN, SERUM 6.9 g/dL (6.4-8.3); UREA NITROGEN, BLOOD 15 mg/dL (8-21)
[2023-12-10 08:00] VITALS: BP_SYST 141; PULSE 81; RESP 14; TEMP 96.7; O2SAT 100
[2023-12-10 09:45] VITALS: BP_SYST 141; PULSE 81; O2SAT 100
[2023-12-10] MEDS ORDERED: MIRT-147 PO (09:58)
[2023-12-10 11:37] VITALS: BP_SYST 113; PULSE 87; RESP 16; TEMP 97.1; O2SAT 99
[2023-12-10 11:38] VITALS: BP_SYST 113; PULSE 87; RESP 16; TEMP 97.1; O2SAT 99
[2023-12-10] MEDS ORDERED: 0.45% NACL 1,000 ML IV SCH (15:45)
== END 2023-12-10 17:15 | disposition home or self-care (01) | DRG 640 ==
LOC: SED 16:40 → STU 19:28
PROVIDERS: ADMIT Family Medicine; ATTEND Family Medicine
DX: E86.0 Dehydration (principal); N17.0 Acute kidney failure with tubular necrosis; N39.0 Urinary tract infection, site not specified; I50.22 Chronic systolic (congestive) heart failure; I13.0 Hypertensive heart and chronic kidney disease with heart failure and stage 1 through stage 4 chronic kidney disease, or unspecified chronic kidney disease; E87.0 Hyperosmolality and hypernatremia; E87.5 Hyperkalemia; D64.9 Anemia, unspecified; E11.22 Type 2 diabetes mellitus with diabetic chronic kidney disease; E88.09 Other disorders of plasma-protein metabolism, not elsewhere classified; N18.9 Chronic kidney disease, unspecified; Z79.899 Other long term (current) drug therapy; Z79.84 Long term (current) use of oral hypoglycemic drugs; J45.909 Unspecified asthma, uncomplicated
CPT/HCPCS: 36415; 80048; 80053; 80076; 81000; 81001; 81015; 82550; 82948; 83037; 83690; 83735; 84484; 85025; 87086; 93005; 94070; 94640; 97110-GP; 97116-GP; 97163-GP; 97530-GP; 99285; G0378; J0696